=== PATIENT | female | born 1980 | race Caucasian/White ===

== ENCOUNTER 2025-03-01 22:53 | Emergency (ER) | payer MEDICAID ==
[~2025-03-01] VITALS: Ht 152.4 cm; Wt 75.0 kg
[2025-03-01 23:03] VITALS: BP 125/86; PULSE 84; RESP 16; TEMP 98.1; O2SAT 98
--- NOTE | 2025-03-02 01:31 | Physician Documentation ---
History of Present Illness ~ Chief Complaint: Rash Stated Complaint: ARM PAIN A BLS Time Seen by MD: 23:54 HPI Patient is a very pleasant 45-year-old female that presents to the emergency department for evaluation for a wound check to the left shoulder. Patient reports she had a operation on her shoulder approximately 1 week ago. Patient reports that she has got significant pain from her shoulder radiating down to her arm. Patient reports he has home health care that came in to evaluate the shoulder today although they did not change the bandage. Patient is concerned that she may have an infection. Patient also reports some mild rash underneath her arm on that side. Patient denies fever chills nausea vomiting diarrhea at this time. Patient does report an episode of sweating while waiting to be picked up from the hotel earlier this morning. Patient denies chest pain chest pressure lightheadedness dizziness or any other symptoms at this time. Medication Reconciliation Allergies: Uncoded Allergies: DERMABOND (Allergy, Unknown, 03/01/25) Physical Exam Vital Signs: Temperature: 98.1, Source: Temporal, Heart Rate: 84, Respiratory Rate: 16, BP: 125/86, Pulse Oximetry: 98, Weight: 75.000 Oxygen Flow Rate: 0 Physical Exam VITALS: Reviewed and as above. GENERAL: Alert, no apparent distress. HEENT: Normocephalic, atraumatic, PERRL, EOMI, dry mucosa, no erythema RESPIRATORY: Lungs clear, normal breath sounds, no respiratory distress. CHEST: No accessory muscle use, no retractions CV: Regular rate, rhythm, no edema. GI: Soft, non-tender, bowels sounds present, no rebound, guarding, or rigidity BACK: No CVA tenderness, or swelling MUSCULOSKELETAL No deformities, mild edema noted to the left shoulder no erythema noted bandage in place. SKIN: Warm and dry, no rash NEURO: Oriented x4, No motor or sensory deficit PSYCH: Normal mood and affect, no agitation Progress Results/Orders Results/Orders Completed Orders - CHRIS KEN MD Diphenhydramine Capsule (Benadryl Capsul (03/02/25 04:00) Vital Signs 03/01/25 23:03 Temp 98.1 Pulse 84 Resp 16 B/P (MAP) 125/86 Pulse Ox 98 O2 Flow Rate 0 Laboratory Tests Test 03/02/25 01:53 Total Creatine Kinase 101 Medical Decision Making Additional information obtaine: old records Findings Patient arriving shoulder surgery recently. Rash is where shoulder immobilizer is rubbing against likely contact dermatitis versus heat rash versus skin irritation. Patient states there is some pruritus around the areas of the flexor surfaces arm. Patient given Benadryl in the emergency department as she was not driving tonight and willing to take medications try and help symptoms. After Benadryl patient no longer having pruritus. Instructed on how to keep areas clean while she is on hour at this time. Patient feeling better at this time and will be stable for discharge. Scar from surgery well-appearing no purulent discharge or erythema healing appropriately. No tests ordered Reviewed nursing notes Reviewed triage notes No social issues Patient primary historian Clinical impression contact dermatitis versus skin irritation versus heat rash Differentials as noted above. Return precautions discussed. Differential Dx:Considerations: Include: Candidiasis, Psoriaisis Departure Disposition: 01 HOME / SELF CARE / HOMELESS Impression: Primary Impression: Skin irritation Condition: Stable Discharge Instructions: Contact Dermatitis Referrals: NO PRIMARY CARE PROVIDER (PCP) Education Educated: Patient Educated regarding: diagnosis, treatment, prognosis, need for follow up Signature Scribe Signature: No scribe Attestation: Signed by Dr. Ken at 4:50 p.m. on March 03, 2025 KENDRICK CASTRO Mar 02, 2025 01:30 CHRIS KEN MD Mar 03, 2025 16:53
== END 2025-03-02 04:43 | disposition left against medical advice (07) ==
LOC: ER 22:54
DX: L98.8 Other specified disorders of the skin and subcutaneous tissue (principal)
CPT/HCPCS: 36415; 82550; 99283; Q0163